=== PATIENT | male | born 1990 | race Caucasian/White ===

== ENCOUNTER 2017-12-14 19:39 | Emergency (ER) | payer BC, MEDICAID, OTHER ==
[2017-12-14] MEDS ORDERED: PROPARACAINE 0.5% OPHTH DROPS 15 ML EACHEYE STA (19:40)
[2017-12-14] MEDS ORDERED: ERYTHROMYCIN OPHTH OINT 1 GM TUBE RIGHTEYE STA (20:16)
--- NOTE | 2017-12-14 20:16 | ED Physician Documentation ---
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 He does not have any eye problems per se.) Review of Systems Constitutional: denies: Fever, Chills Nose: denies: Rhinorrhea / runny nose, Congestion Throat: denies: Sore throat PD PAST MEDICAL HISTORY - Past Medical History Past Medical History: No - Past Surgical History Past Surgical History: No - Present Medications Home Medications: Ambulatory Orders Medication Instructions Recorded Confirmed No Known Home Medications [No 12/14/17 12/14/17 Known Home Medications] - Allergies Allergies/Adverse Reactions: Allergies Allergy/AdvReac Type Severity Reaction Status Date / Time No Known Drug Allergies Allergy Verified 12/14/17 19:43 - Social History Does the pt smoke?: Yes Smoking Status: Current every day smoker Does the pt drink ETOH?: Yes Does the pt have substance abuse?: No Substance Use and Type: Marijuana - Immunizations Immunizations are current?: No PD ED PE NORMAL - Vitals Vital signs reviewed: Yes - General General: Alert and oriented X 3, No acute distress - HEENT HEENT: PERRL, EOMI, Other (He has a lot of pain until the administration of proparacaine after which she is pain-free. On fluorescein examination there is a large medial corneal abrasion with negative Gustabo sign.) - Neck Neck: Supple, no meningeal sign, No bony TTP - Neuro Neuro: Alert and oriented X 3, Normal speech Results - Vitals Vitals: Vital Signs - 24 hr 12/14/17 19:40 Temperature 36.5 C Heart Rate 79 Respiratory 16 Rate Blood Pressure 134/74 H O2 Saturation 100 Oxygen O2 Source Room air Departure - Departure Disposition: 01 Home, Self Care Clinical Impression: Corneal abrasion, right Qualifiers: Encounter type: initial encounter Qualified Code(s): S05.01XA - Injury of conjunctiva and corneal abrasion without foreign body, right eye, initial encounter Condition: Good Record reviewed to determine appropriate education?: Yes Instructions: ED Eye Injury Corneal Abrasion Follow-Up: Khris Wheat MD [Provider Admit Priv/Credential] - Within 3 Days Comments: You can use the topical proparacaine drops which I mostly emptied every 2 hours for no more than a day for pain control. Use the erythromycin ointment which you were given here 5 times a day for a week. Your blood pressure was elevated today on check into the emergency department. This does not mean that you have hypertension, it is a common phenomenon to come to the emergency department and have elevated blood pressure. I recommend that you see your primary care physician within the week to have it rechecked when you are feeling better.
[2017-12-14 20:29] VITALS: BP 139/77
== END 2017-12-14 20:28 | disposition home or self-care (01) ==
LOC: ED 19:39
DX: S05.01XA Injury of conjunctiva and corneal abrasion without foreign body, right eye, initial encounter (principal); W22.8XXA Striking against or struck by other objects, initial encounter; Y99.0 Civilian activity done for income or pay; R03.0 Elevated blood-pressure reading, without diagnosis of hypertension; F17.200 Nicotine dependence, unspecified, uncomplicated
CPT/HCPCS: 1040M; 99283; J3490

== ENCOUNTER 2019-06-21 09:00 | Outpatient (CLI) | payer BC, MEDICAID | END 2019-06-21 23:59 | disposition home or self-care (01) | LOC: LAB.WCP 09:00 | PROVIDERS: ATTEND Family Medicine | DX: M25.551 Pain in right hip (principal); R10.2 Pelvic and perineal pain | CPT/HCPCS: 36415; 85651; 86140 ==

== ENCOUNTER 2019-06-21 09:44 | Outpatient (CLI) | payer BC, MEDICAID ==
--- NOTE | 2019-06-22 08:11 | XRAY Report ---
Reason: BILATERAL HIP AND PELVIC PAIN Procedure Date: 06/21/2019 Accession Number: [id number] / [id number] Procedure: WCP - Hip BILAT CPT Code: Final Report FULL RESULT: EXAM: PELVIS FOR BILATERAL HIP RADIOGRAPHY, 3 VIEWS EXAM DATE: 06/21/2019 09:44 AM. CLINICAL HISTORY: Bilateral hip and pelvic pain since September 2018, in a 28-year-old male. COMPARISON: None. TECHNIQUE: AP view of the pelvis and both hips and oblique lateral views each hip. FINDINGS: Bones: Normal. No fractures or bone lesion. Right Hip: Normal. No dislocation. The hip joint space is preserved. Left Hip: Normal. No dislocation. The hip joint space is preserved. SI Joints: Moderate osteoarthritic changes both SI joints. Soft Tissues: Normal. No soft tissue swelling. Other: Calcifications noted in the lower aspect of the urinary bladder region, likely in the patient's prostate. IMPRESSION: Moderate osteoarthritic changes both sacroiliac joints. Otherwise normal examination. Hip joints normal bilaterally. Incidental Finding: Calcifications in the distal pelvic region, likely within the patient's prostate, approximately 15 mm in maximum diameter. RADIA
== END 2019-06-21 23:59 | disposition home or self-care (01) ==
LOC: DI.WCP 09:44
PROVIDERS: ATTEND Family Medicine
DX: M25.551 Pain in right hip (principal); R10.2 Pelvic and perineal pain; M47.818 Spondylosis without myelopathy or radiculopathy, sacral and sacrococcygeal region
CPT/HCPCS: 36415; 73521; 85651; 86140

== ENCOUNTER 2019-06-29 08:00 | Outpatient (CLI) | payer BC | END 2019-06-29 23:59 | disposition home or self-care (01) | LOC: LAB.WCP 08:00 | PROVIDERS: ATTEND Family Medicine | DX: M25.551 Pain in right hip (principal); R10.2 Pelvic and perineal pain | CPT/HCPCS: 36415; 81599 ==

== ENCOUNTER 2020-07-14 10:08 | Outpatient (CLI) | payer BC | END 2020-07-14 10:09 | disposition home or self-care (01) | LOC: COV 10:08 | PROVIDERS: ATTEND Family Medicine | DX: Z20.828 Contact with and (suspected) exposure to other viral communicable diseases (principal) ==

== ENCOUNTER 2022-11-12 16:07 | Outpatient (CLI) | payer BC | END 2022-11-12 23:59 | disposition critical access hospital (66) | LOC: EMS 16:07 | DX: R56.9 Unspecified convulsions (principal) | CPT/HCPCS: A0425; A0429 ==

== ENCOUNTER 2022-11-12 16:28 | Emergency (ER) | payer BC ==
[2022-11-12 16:48] LABS: BASOPHILS # (AUTO) 0.1 10^3/uL (0.0-0.1); BASOPHILS % (AUTO) 0.7 %; EOSINOPHILS # (AUTO) 0.2 10^3/uL (0.0-0.7); EOSINOPHILS % (AUTO) 1.2 %; HCT - HEMATOCRIT 43.4 % (42.0-52.0); HGB - HEMOGLOBIN 14.6 g/dL (14.0-18.0); LYMPHOCYTES # (AUTO) 1.8 10^3/uL (1.5-3.5); LYMPHOCYTES % (AUTO) 14.6 %; MEAN CORPUSCULAR HEMOGLOBIN 33.3 pg (27.0-31.0); MEAN CORPUSCULAR HGB CONC 33.6 g/dL (32.0-36.0); MEAN CORPUSCULAR VOLUME 99.1 fL (80.0-94.0); MEAN PLATELET VOLUME 9.2 fL (7.4-11.4); MONOCYTES # (AUTO) 0.9 10^3/uL (0.0-1.0); NEUTROPHILS # (AUTO) 9.4 10^3/uL (1.5-6.6); NEUTROPHILS % (AUTO) 76.1 %; PLT - PLATELET COUNT 273 10^3/uL (130-450); RED BLOOD COUNT 4.38 10^6/uL (4.70-6.10); RED CELL DISTRIBUTION WIDTH 12.3 % (12.0-15.0); WHITE BLOOD COUNT 12.3 x10^3/uL (4.8-10.8)
[2022-11-12 17:01] LABS: MUDS CUTOFF CONCENTRATIONS CUTOFF CONC BELOW:
[2022-11-12 17:01] LABS: ALBUMIN 4.4 g/dL (3.2-5.5); ALBUMIN/GLOBULIN RATIO 1.5 (1.0-2.2); BILIRUBIN,TOTAL 0.5 mg/dL (0.2-1.0); CALCIUM 9.2 mg/dL (8.5-10.3); POTASSIUM 3.9 mmol/L (3.5-5.0); TOTAL PROTEIN 7.3 g/dL (6.7-8.2)
[2022-11-12 17:08] LABS: BILIRUBIN,URINE NEGATIVE (NEGATIVE); GLUCOSE, URINE (UA) NEGATIVE (NEGATIVE); KETONES,URINE (UA) NEGATIVE (NEGATIVE); LEUKOCYTE ESTERASE, URINE TRACE (NEGATIVE); NITRITE,URINE NEGATIVE (NEGATIVE); OCCULT BLOOD,URINE TRACE-INTA (NEGATIVE); PROTEIN,URINE TRACE mg/dL (NEGATIVE); UROBILINOGEN,URINE 0.2 (NORMAL) E.U./dL (NORMAL)
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
[2022-11-12 17:20] LABS: CLARITY,URINE HAZY (CLEAR)
[2022-11-12 17:21] LABS: AMPHETAMINE SCREEN,URINE NEGATIVE (NEGATIVE); BARBITURATE SCREEN,UR NEGATIVE (NEGATIVE); BENZODIAZEPINES SCREEN, URINE NEGATIVE (NEGATIVE); COCAINE SCREEN URINE NEGATIVE (NEGATIVE); METHADONE SCREEN, URINE NEGATIVE (NEGATIVE); METHAMPHETAMINES SCREEN, URINE NEGATIVE (NEGATIVE); OPIATE SCREEN, URINE NEGATIVE (NEGATIVE); OXYCODONE SCREEN, URINE NEGATIVE (NEGATIVE); PROPOXYPHENE SCREEN, URINE NEGATIVE (NEGATIVE); THC CANNABINOID SCREEN, URINE POSITIVE (NEGATIVE); TRICYCLIC ANTIDEPRESSANT,URINE NEGATIVE (NEGATIVE)
[2022-11-12 17:27] LABS: BACTERIA,URINE None Seen /HPF (None Seen); RBC,URINE 0-5 /HPF (0-5); SQUAMOUS EPITHELIAL CELL,UR FEW Squamous (<= Few); WBC,URINE 0-3 /HPF (0-3)
--- NOTE | 2022-11-12 18:04 | CT Report ---
PROCEDURE: HEAD WO INDICATIONS: New onset seizure TECHNIQUE: Noncontrast 4.5 mm thick angled axial sections acquired from the foramen magnum to the vertex. For r adiation dose reduction, the following was used: automated exposure control, adjustment of mA and/or kV according to patient size. COMPARISON: None. FINDINGS: Image quality: Excellent. CSF spaces: Basal cisterns are patent. No extra-axial fluid collections. Ventricles are normal in size and shape. Brain: No midline shift. No intracranial masses or hemorrhage. River-white matter interface is norm al. Skull and face: Calvarium and visualized facial bones are intact, without suspicious lesions. Sinuses: Visualized sinuses and mastoids are clear. IMPRESSION: No acute intracranial abnormalities. Reviewed by: Meagan Turk MD on 11/12/2022 6:02 PM PDT Approved by: Meagan Turk MD on 11/12/2022 6:02 PM PDT Station ID: [id number]
[2022-11-12 18:34] VITALS: BP 152/90
== END 2022-11-12 19:07 | disposition home or self-care (01) ==
LOC: EDUNIT# → ED 16:28
DX: R56.9 Unspecified convulsions (principal); F17.200 Nicotine dependence, unspecified, uncomplicated
CPT/HCPCS: 36415; 80053; 80306; 81001; 81003; 83690; 85025; 87086; 99284

== ENCOUNTER 2022-12-06 07:04 | Outpatient (CLI) | payer BC ==
[2022-12-06] MEDS ORDERED: GADOBUTROL 10 MMOL/10 ML VIAL ONE (07:16)
--- NOTE | 2022-12-06 09:02 | MRI Report ---
PROCEDURE: BRAIN W/WO INDICATIONS: SEIZURE DISORDER CONTRAST: gadavist 8.6ml TECHNIQUE: Noncontrast axial T1 spin echo, axial T2 fast spin echo, sagittal and axial FLAIR, coronal T2 fast sp in echo, axial gradient echo, axial diffusion and ADC through the brain. After the administration of contrast, axial and coronal T1 spin echo with fat saturation through the brain. COMPARISON: CT Head 11/12/22 FINDINGS: Image quality: Excellent. CSF spaces: Basal cisterns are patent. No extra-axial fluid collections. Ventricles are normal in size and shape. Brain: No midline shift. No intracranial bleeds or masses. No abnormal intracranial enhancement. There is cerebral volume loss for age. There is periventricular white matter chronic small vessel is chemic change. The brainstem appears normal. Diffusion-weighted images demonstrate no acute ischemi c insults. No chronic ischemic insults. Normal intravascular flow voids are present. Hipppocampi a re symmetrical. No abnormal signal, mass or enhancement. Skull and face: Calvarial marrow is normal in signal. Orbits appear normal. Sinuses: Sinuses and mastoids appear clear. IMPRESSION: No acute intracranial process. Reviewed by: Lindsey Damon MD on 12/06/2022 9:01 AM PDT Approved by: Lindsey Damon MD on 12/06/2022 9:01 AM PDT Station ID: [id number]
[2022-12-06] MEDS ORDERED: GADOBUTROL 10 MMOL/10 ML VIAL IVP ONE (19:05)
== END 2022-12-06 07:05 | disposition home or self-care (01) ==
LOC: DI 07:04
PROVIDERS: ATTEND Family Medicine
DX: G40.909 Epilepsy, unspecified, not intractable, without status epilepticus (principal)
CPT/HCPCS: 70553; A9585

== ENCOUNTER 2023-01-06 17:45 | Outpatient (CLI) | payer BC | END 2023-01-06 17:46 | disposition critical access hospital (66) | LOC: EMS 17:45 | DX: R56.9 Unspecified convulsions (principal); R51.9 Headache, unspecified; W07.XXXA Fall from chair, initial encounter; Y92.89 Other specified places as the place of occurrence of the external cause | CPT/HCPCS: A0425; A0429 ==

== ENCOUNTER 2023-01-06 18:08 | Emergency (ER) | payer BC ==
--- NOTE | 2023-01-06 18:21 | ED Physician Documentation ---
History of Present Illness - Stated complaint Stated Complaint: SZ - Chief complaint Chief Complaint: Neuro - Additonal information Additional information: 32-year-old male with a history of a known seizure disorder Is brought to the emergency department after a witnessed seizure. Reportedly was sitting at a bar about to order a beer when he suddenly leaned to his left, fell off the barstool and had a 32 1 minute generalized tonic-clonic seizure. EMS arrived and he was mildly postictal but had no focal deficits. His blood glucose was 120. Presentation the emergency department he is alert and well-appearing. He reports that his last seizure was November 12. He reports compliance with his seizure medication but cannot remember the name of it. With the exception of occasional alcohol he denies any drug use. He is followed by neurology. Review of Systems Constitutional: denies: Fever, Chills GI: reports: Reviewed and negative : reports: Reviewed and negative Neurologic: reports: Seizure PD PAST MEDICAL HISTORY - Past Medical History Cardiovascular: None Respiratory: None Neuro: None Endocrine/Autoimmune: None GI: None : None HEENT: None Psych: None Musculoskeletal: None Derm: None - Past Surgical History Past Surgical History: No - Present Medications Home Medications: Ambulatory Orders Medication Instructions Recorded Confirmed No Known Home Medications 12/14/17 11/12/22 - Allergies Allergies/Adverse Reactions: Allergies Allergy/AdvReac Type Severity Reaction Status Date / Time No Known Drug Allergies Allergy Verified 01/06/23 18:15 - Social History Does the pt smoke?: Yes Smoking Status: Current every day smoker Does the pt drink ETOH?: Yes Does the pt have substance abuse?: No - Immunizations Immunizations are current?: No PD ED PE NORMAL - General General: Alert and oriented X 3, No acute distress - HEENT HEENT: PERRL - Neck Neck: Supple, no meningeal sign, No adenopathy - Cardiac Cardiac: RRR, No murmur - Respiratory Respiratory: No respiratory distress, Clear bilaterally - Abdomen Abdomen: Normal bowel sounds, Soft, Non tender - Extremities Extremities: No deformity - Neuro Neuro: Alert and oriented X 3, furniture finisher 2-12 intact Eye Opening: Spontaneous Motor: Obeys Commands Verbal: Oriented GCS Score: 15 Results - Vitals Vitals: Vital Signs - 24 hr 01/06/23 18:13 Temperature 36.9 C Heart Rate 115 H Respiratory 16 Rate Blood Pressure 170/105 H O2 Saturation 97 Oxygen O2 Source Room air - Labs Labs: Laboratory Tests 01/06/23 01/06/23 01/06/23 18:25 18:25 18:32 WBC 12.6 H RBC 4.27 L Hgb 14.5 Hct 42.1 MCV 98.6 H MCH 34.0 H MCHC 34.4 RDW 13.2 Plt Count 245 MPV 9.2 Neut # (Auto) 9.0 H Lymph # (Auto) 2.1 Power # (Auto) 1.1 H Eos # (Auto) 0.2 Baso # (Auto) 0.1 Absolute Nucleated RBC 0.00 Nucleated RBC % 0.0 Sodium 135 Potassium 3.6 Chloride 100 L Carbon Dioxide 26 Anion Gap 9.0 BUN 17 Creatinine 0.9 Estimated GFR (MDRD) 98 Glucose 107 H Calcium 9.1 Total Bilirubin 0.5 AST 46 H ALT 45 Alkaline Phosphatase 84 Total Protein 7.5 Albumin 4.2 Globulin 3.3 Albumin/Globulin Ratio 1.3 Lipase 32 Urine Opiates Screen NEGATIVE Ur Oxycodone Screen NEGATIVE Urine Methadone Screen NEGATIVE Ur Propoxyphene Screen NEGATIVE Ur Barbiturates Screen NEGATIVE Ur Tricyclics Screen NEGATIVE Ur Phencyclidine Scrn NEGATIVE Ur Amphetamine Screen NEGATIVE U Methamphetamines Scrn NEGATIVE U Benzodiazepines Scrn NEGATIVE Urine Cocaine Screen NEGATIVE U Cannabinoids Screen POSITIVE H Ethyl Alcohol < 5.0 PD Medical Decision Making - ED course Complexity details: reviewed results, d/w patient ED course: 32-year-old male who has a known seizure disorder presents emergency department after witnessed seizure when sitting down to the bar. He had not yet drank any alcohol. He does report to this provider that he has not drank much today and thinks he is dehydrated. His last seizure was about 2 months ago but he started a new seizure medicine about 3 days ago. He is followed by [facility] neurology. On presentation to the emergency department he is alert and well-appearing. He does not appear postictal. He has no focal neurodeficits. He did present mildly tachycardic and with hypertension. I did obtain CBC electrolytes and urine drug screen as well as alcohol. Urine drug screen was positive for cannabis only. No alcohol was detected. His CBC and electrolytes were without any worrisome acute abnormality per my interpretation. I am at this time patient is requesting be discharged home. We did discuss the usual emergent return precautions for worsening symptoms. He will contact his neurologist tomorrow to discuss this ED visit. Departure - Departure Disposition: 01 Home, Self Care Clinical Impression: Seizure, History of seizure disorder Condition: Stable Record reviewed to determine appropriate education?: Yes Comments: Godfrey you had a seizure today. It sounds as though you have only been taking your seizure medication for about 3 days. Is important you discuss this ED visit with your neurologist to determine if they want to make any adjustments or changes to your medications. Is important you continue to refrain from driving until cleared by your neurologist. Return to the ER for any new or worsening symptoms
[2023-01-06 18:37] LABS: BASOPHILS # (AUTO) 0.1 10^3/uL (0.0-0.1); BASOPHILS % (AUTO) 0.8 %; EOSINOPHILS # (AUTO) 0.2 10^3/uL (0.0-0.7); EOSINOPHILS % (AUTO) 1.7 %; HCT - HEMATOCRIT 42.1 % (42.0-52.0); HGB - HEMOGLOBIN 14.5 g/dL (14.0-18.0); LYMPHOCYTES # (AUTO) 2.1 10^3/uL (1.5-3.5); LYMPHOCYTES % (AUTO) 16.7 %; MEAN CORPUSCULAR HGB CONC 34.4 g/dL (32.0-36.0); MEAN CORPUSCULAR VOLUME 98.6 fL (80.0-94.0); MEAN PLATELET VOLUME 9.2 fL (7.4-11.4); MONOCYTES # (AUTO) 1.1 10^3/uL (0.0-1.0); MONOCYTES % (AUTO) 8.8 %; NEUTROPHILS % (AUTO) 71.5 %; PLT - PLATELET COUNT 245 10^3/uL (130-450); RED BLOOD COUNT 4.27 10^6/uL (4.70-6.10); RED CELL DISTRIBUTION WIDTH 13.2 % (12.0-15.0); WHITE BLOOD COUNT 12.6 x10^3/uL (4.8-10.8)
[2023-01-06 18:38] LABS: MUDS CUTOFF CONCENTRATIONS CUTOFF CONC BELOW:
[2023-01-06 18:49] LABS: ALBUMIN 4.2 g/dL (3.2-5.5); ALBUMIN/GLOBULIN RATIO 1.3 (1.0-2.2); ALKALINE PHOSPHATASE 84 IU/L (42-121); ALT ALANINE AMINOTRANSFERASE 45 IU/L (10-60); AST ASPARTATE AMINOTRANSFERASE 46 IU/L (10-42); BILIRUBIN,TOTAL 0.5 mg/dL (0.2-1.0); BUN - BLOOD UREA NITROGEN 17 mg/dL (6-20); CALCIUM 9.1 mg/dL (8.5-10.3); CARBON DIOXIDE - CO2 26 mmol/L (21-32); CHLORIDE 100 mmol/L (101-111); CREATININE 0.9 mg/dL (0.6-1.2); ETOH - ETHANOL < 5.0 mg/dL; GFR - MDRD 98 (>89); GLUCOSE 107 mg/dL (70-100); LIPASE 32 U/L (22-51); POTASSIUM 3.6 mmol/L (3.5-5.0); SODIUM 135 mmol/L (135-145); TOTAL PROTEIN 7.5 g/dL (6.7-8.2)
[2023-01-06 18:50] LABS: AMPHETAMINE SCREEN,URINE NEGATIVE (NEGATIVE); BARBITURATE SCREEN,UR NEGATIVE (NEGATIVE); BENZODIAZEPINES SCREEN, URINE NEGATIVE (NEGATIVE); COCAINE SCREEN URINE NEGATIVE (NEGATIVE); METHADONE SCREEN, URINE NEGATIVE (NEGATIVE); METHAMPHETAMINES SCREEN, URINE NEGATIVE (NEGATIVE); OPIATE SCREEN, URINE NEGATIVE (NEGATIVE); OXYCODONE SCREEN, URINE NEGATIVE (NEGATIVE); PROPOXYPHENE SCREEN, URINE NEGATIVE (NEGATIVE); THC CANNABINOID SCREEN, URINE POSITIVE (NEGATIVE); TRICYCLIC ANTIDEPRESSANT,URINE NEGATIVE (NEGATIVE)
--- OUTSIDE RECORDS SUMMARY | 2023-01-06 19:00 | EXTERNAL MEDICAL SUMMARY RPT | Continuity of Care Document ---
Author Name Unknown Address [address] [place] [address] Phone Organization [facility] Address [address] [place] [id number] Phone Care Team Providers Care Re Examiner Name Role Phone Unavailable Unavailable Unavailable Results/Labs test date author facility value unit interpretation Result panel 1 (unknown) (no date) (unknown) All (no value) (units unknown) (unknown) Result panel 2 (unknown) (no date) (unknown) All (no value) (units unknown) (unknown) Result panel 3 (unknown) (no date) (unknown) All (no value) (units unknown) (unknown) Result panel 4 (unknown) (no date) (unknown) All (no value) (units unknown) (unknown) Result panel 5 (unknown) (no date) (unknown) All (no value) (units unknown) (unknown) Result panel 6 (unknown) (no date) (unknown) All (no value) (units unknown) (unknown) Result panel 7 (unknown) (no date) (unknown) All (no value) (units unknown) (unknown) Result panel 8 (unknown) (no date) (unknown) All (no value) (units unknown) (unknown) Result panel 9 (unknown) (no date) (unknown) All (no value) (units unknown) (unknown) Result panel 10 (unknown) (no date) (unknown) All (no value) (units unknown) (unknown) Result panel 11 (unknown) (no date) (unknown) All (no value) (units unknown) (unknown) Result panel 12 (unknown) (no date) (unknown) All (no value) (units unknown) (unknown) Result panel 13 (unknown) (no date) (unknown) All (no value) (units unknown) (unknown) Result panel 14 (unknown) (no date) (unknown) All (no value) (units unknown) (unknown) Result panel 15 (unknown) (no date) (unknown) All (no value) (units unknown) (unknown) Result panel 16 (unknown) (no date) (unknown) All (no value) (units unknown) (unknown) Result panel 17 (unknown) (no date) (unknown) All (no value) (units unknown) (unknown) Result panel 18 (unknown) (no date) (unknown) All (no value) (units unknown) (unknown) Result panel 19 (unknown) (no date) (unknown) All (no value) (units unknown) (unknown) Result panel 20 (unknown) (no date) (unknown) All (no value) (units unknown) (unknown) Result panel 21 (unknown) (no date) (unknown) All (no value) (units unknown) (unknown) Result panel 22 (unknown) (no date) (unknown) All (no value) (units unknown) (unknown) Result panel 23 (unknown) (no date) (unknown) All (no value) (units unknown) (unknown) Result panel 24 (unknown) (no date) (unknown) All (no value) (units unknown) (unknown) Result panel 25 (unknown) (no date) (unknown) All (no value) (units unknown) (unknown) Result panel 26 (unknown) (no date) (unknown) All (no value) (units unknown) (unknown) Result panel 27 (unknown) (no date) (unknown) All (no value) (units unknown) (unknown) Result panel 28 (unknown) (no date) (unknown) All (no value) (units unknown) (unknown) Result panel 29 (unknown) (no date) (unknown) All (no value) (units unknown) (unknown) Result panel 30 (unknown) (no date) (unknown) All (no value) (units unknown) (unknown) Result panel 31 (unknown) (no date) (unknown) All (no value) (units unknown) (unknown) Result panel 32 (unknown) (no date) (unknown) All (no value) (units unknown) (unknown) Result panel 33 (unknown) (no date) (unknown) All (no value) (units unknown) (unknown) Result panel 34 (unknown) (no date) (unknown) All (no value) (units unknown) (unknown) Result panel 35 (unknown) (no date) (unknown) All (no value) (units unknown) (unknown) Result panel 36 (unknown) (no date) (unknown) All (no value) (units unknown) (unknown) Result panel 37 (unknown) (no date) (unknown) All (no value) (units unknown) (unknown) Result panel 38 (unknown) (no date) (unknown) All (no value) (units unknown) (unknown) Result panel 39 (unknown) (no date) (unknown) All (no value) (units unknown) (unknown) Result panel 40 (unknown) (no date) (unknown) All (no value) (units unknown) (unknown) Result panel 41 (unknown) (no date) (unknown) All (no value) (units unknown) (unknown) Result panel 42 (unknown) (no date) (unknown) All (no value) (units unknown) (unknown) Result panel 43 (unknown) (no date) (unknown) All (no value) (units unknown) (unknown) Result panel 44 (unknown) (no date) (unknown) All (no value) (units unknown) (unknown) Result panel 45 (unknown) (no date) (unknown) All (no value) (units unknown) (unknown) Result panel 46 (unknown) (no date) (unknown) All (no value) (units unknown) (unknown) Result panel 47 (unknown) (no date) (unknown) All (no value) (units unknown) (unknown) Result panel 48 (unknown) (no date) (unknown) All (no value) (units unknown) (unknown) Result panel 49 (unknown) (no date) (unknown) All (no value) (units unknown) (unknown) Result panel 50 (unknown) (no date) (unknown) All (no value) (units unknown) (unknown) Result panel 51 (unknown) (no date) (unknown) All (no value) (units unknown) (unknown) Result panel 52 (unknown) (no date) (unknown) All (no value) (units unknown) (unknown) Result panel 53 (unknown) (no date) (unknown) All (no value) (units unknown) (unknown) Result panel 54 (unknown) (no date) (unknown) All (no value) (units unknown) (unknown) Result panel 55 (unknown) (no date) (unknown) All (no value) (units unknown) (unknown) Result panel 56 (unknown) (no date) (unknown) All (no value) (units unknown) (unknown) Result panel 57 (unknown) (no date) (unknown) All (no value) (units unknown) (unknown) Result panel 58 (unknown) (no date) (unknown) All (no value) (units unknown) (unknown) Result panel 59 (unknown) (no date) (unknown) All (no value) (units unknown) (unknown) Result panel 60 (unknown) (no date) (unknown) All (no value) (units unknown) (unknown) Result panel 61 (unknown) (no date) (unknown) All (no value) (units unknown) (unknown) Result panel 62 (unknown) (no date) (unknown) All (no value) (units unknown) (unknown) Result panel 63 (unknown) (no date) (unknown) All (no value) (units unknown) (unknown) Result panel 64 (unknown) (no date) (unknown) All (no value) (units unknown) (unknown) Result panel 65 (unknown) (no date) (unknown) All (no value) (units unknown) (unknown) Result panel 66 (unknown) (no date) (unknown) All (no value) (units unknown) (unknown) Result panel 67 (unknown) (no date) (unknown) All (no value) (units unknown) (unknown) Result panel 68 (unknown) (no date) (unknown) All (no value) (units unknown) (unknown) Result panel 69 (unknown) (no date) (unknown) All (no value) (units unknown) (unknown) Result panel 70 (unknown) (no date) (unknown) All (no value) (units unknown) (unknown) Result panel 71 (unknown) (no date) (unknown) All (no value) (units unknown) (unknown) Result panel 72 (unknown) (no date) (unknown) All (no value) (units unknown) (unknown) Result panel 73 (unknown) (no date) (unknown) All (no value) (units unknown) (unknown) Result panel 74 (unknown) (no date) (unknown) All (no value) (units unknown) (unknown) Result panel 75 (unknown) (no date) (unknown) All (no value) (units unknown) (unknown) Result panel 76 (unknown) (no date) (unknown) All (no value) (units unknown) (unknown) Result panel 77 (unknown) (no date) (unknown) All (no value) (units unknown) (unknown) Result panel 78 (unknown) (no date) (unknown) All (no value) (units unknown) (unknown) Result panel 79 (unknown) (no date) (unknown) All (no value) (units unknown) (unknown) Result panel 80 (unknown) (no date) (unknown) All (no value) (units unknown) (unknown) Result panel 81 (unknown) (no date) (unknown) All (no value) (units unknown) (unknown) Result panel 82 (unknown) (no date) (unknown) All (no value) (units unknown) (unknown) Result panel 83 (unknown) (no date) (unknown) All (no value) (units unknown) (unknown) Result panel 84 (unknown) (no date) (unknown) All (no value) (units unknown) (unknown) Result panel 85 (unknown) (no date) (unknown) All (no value) (units unknown) (unknown) Result panel 86 (unknown) (no date) (unknown) All (no value) (units unknown) (unknown) Result panel 87 (unknown) (no date) (unknown) All (no value) (units unknown) (unknown) Result panel 88 (unknown) (no date) (unknown) All (no value) (units unknown) (unknown) Result panel 89 (unknown) (no date) (unknown) All (no value) (units unknown) (unknown) Result panel 90 (unknown) (no date) (unknown) All (no value) (units unknown) (unknown) Result panel 91 (unknown) (no date) (unknown) All (no value) (units unknown) (unknown) Result panel 92 (unknown) (no date) (unknown) All (no value) (units unknown) (unknown) Result panel 93 (unknown) (no date) (unknown) All (no value) (units unknown) (unknown) Result panel 94 (unknown) (no date) (unknown) All (no value) (units unknown) (unknown) Result panel 95 (unknown) (no date) (unknown) All (no value) (units unknown) (unknown) Result panel 96 (unknown) (no date) (unknown) All (no value) (units unknown) (unknown) Result panel 97 (unknown) (no date) (unknown) All (no value) (units unknown) (unknown) Result panel 98 (unknown) (no date) (unknown) All (no value) (units unknown) (unknown) Result panel 99 (unknown) (no date) (unknown) All (no value) (units unknown) (unknown) Result panel 100 (unknown) (no date) (unknown) All (no value) (units unknown) (unknown) Result panel 101 (unknown) (no date) (unknown) All (no value) (units unknown) (unknown) Result panel 102 (unknown) (no date) (unknown) All (no value) (units unknown) (unknown) Result panel 103 (unknown) (no date) (unknown) All (no value) (units unknown) (unknown) Result panel 104 (unknown) (no date) (unknown) All (no value) (units unknown) (unknown) Result panel 105 (unknown) (no date) (unknown) All (no value) (units unknown) (unknown) Result panel 106 (unknown) (no date) (unknown) All (no value) (units unknown) (unknown) Result panel 107 (unknown) (no date) (unknown) All (no value) (units unknown) (unknown) Result panel 108 (unknown) (no date) (unknown) All (no value) (units unknown) (unknown) Result panel 109 (unknown) (no date) (unknown) All (no value) (units unknown) (unknown) Result panel 110 (unknown) (no date) (unknown) All (no value) (units unknown) (unknown) Result panel 111 (unknown) (no date) (unknown) All (no value) (units unknown) (unknown) Result panel 112 (unknown) (no date) (unknown) All (no value) (units unknown) (unknown) Result panel 113 (unknown) (no date) (unknown) All (no value) (units unknown) (unknown) Result panel 114 (unknown) (no date) (unknown) All (no value) (units unknown) (unknown) Result panel 115 (unknown) (no date) (unknown) All (no value) (units unknown) (unknown) Result panel 116 (unknown) (no date) (unknown) All (no value) (units unknown) (unknown) Result panel 117 (unknown) (no date) (unknown) All (no value) (units unknown) (unknown) Result panel 118 (unknown) (no date) (unknown) All (no value) (units unknown) (unknown) Result panel 119 (unknown) (no date) (unknown) All (no value) (units unknown) (unknown) Result panel 120 (unknown) (no date) (unknown) All (no value) (units unknown) (unknown) Result panel 121 (unknown) (no date) (unknown) All (no value) (units unknown) (unknown) Result panel 122 (unknown) (no date) (unknown) All (no value) (units unknown) (unknown) Result panel 123 (unknown) (no date) (unknown) All (no value) (units unknown) (unknown) Result panel 124 (unknown) (no date) (unknown) All (no value) (units unknown) (unknown) Result panel 125 (unknown) (no date) (unknown) All (no value) (units unknown) (unknown) Result panel 126 (unknown) (no date) (unknown) All (no value) (units unknown) (unknown) Result panel 127 (unknown) (no date) (unknown) All (no value) (units unknown) (unknown) Result panel 128 (unknown) (no date) (unknown) All (no value) (units unknown) (unknown) Result panel 129 (unknown) (no date) (unknown) All (no value) (units unknown) (unknown) Result panel 130 (unknown) (no date) (unknown) All (no value) (units unknown) (unknown) Result panel 131 (unknown) (no date) (unknown) All (no value) (units unknown) (unknown) Result panel 132 (unknown) (no date) (unknown) All (no value) (units unknown) (unknown) Result panel 133 (unknown) (no date) (unknown) All (no value) (units unknown) (unknown) Result panel 134 (unknown) (no date) (unknown) All (no value) (units unknown) (unknown) Result panel 135 (unknown) (no date) (unknown) All (no value) (units unknown) (unknown) Result panel 136 (unknown) (no date) (unknown) All (no value) (units unknown) (unknown) Result panel 137 (unknown) (no date) (unknown) All (no value) (units unknown) (unknown) Result panel 138 (unknown) (no date) (unknown) All (no value) (units unknown) (unknown) Result panel 139 (unknown) (no date) (unknown) All (no value) (units unknown) (unknown) Result panel 140 (unknown) (no date) (unknown) All (no value) (units unknown) (unknown) Result panel 141 (unknown) (no date) (unknown) All (no value) (units unknown) (unknown) Result panel 142 (unknown) (no date) (unknown) All (no value) (units unknown) (unknown) Result panel 143 (unknown) (no date) (unknown) All (no value) (units unknown) (unknown) Result panel 144 (unknown) (no date) (unknown) All (no value) (units unknown) (unknown) Result panel 145 (unknown) (no date) (unknown) All (no value) (units unknown) (unknown) Result panel 146 (unknown) (no date) (unknown) All (no value) (units unknown) (unknown) Result panel 147 (unknown) (no date) (unknown) All (no value) (units unknown) (unknown) Result panel 148 (unknown) (no date) (unknown) All (no value) (units unknown) (unknown) Result panel 149 (unknown) (no date) (unknown) All (no value) (units unknown) (unknown) Result panel 150 (unknown) (no date) (unknown) All (no value) (units unknown) (unknown) Result panel 151 (unknown) (no date) (unknown) All (no value) (units unknown) (unknown) Result panel 152 (unknown) (no date) (unknown) All (no value) (units unknown) (unknown) Result panel 153 (unknown) (no date) (unknown) All (no value) (units unknown) (unknown) Result panel 154 (unknown) (no date) (unknown) All (no value) (units unknown) (unknown) Result panel 155 (unknown) (no date) (unknown) All (no value) (units unknown) (unknown) Result panel 156 (unknown) (no date) (unknown) All (no value) (units unknown) (unknown) Result panel 157 (unknown) (no date) (unknown) All (no value) (units unknown) (unknown) Result panel 158 (unknown) (no date) (unknown) All (no value) (units unknown) (unknown) Result panel 159 (unknown) (no date) (unknown) All (no value) (units unknown) (unknown) Result panel 160 (unknown) (no date) (unknown) All (no value) (units unknown) (unknown) Result panel 161 (unknown) (no date) (unknown) All (no value) (units unknown) (unknown) Result panel 162 (unknown) (no date) (unknown) All (no value) (units unknown) (unknown) Result panel 163 (unknown) (no date) (unknown) All (no value) (units unknown) (unknown) Result panel 164 (unknown) (no date) (unknown) All (no value) (units unknown) (unknown) Result panel 165 (unknown) (no date) (unknown) All (no value) (units unknown) (unknown) Result panel 166 (unknown) (no date) (unknown) All (no value) (units unknown) (unknown) Result panel 167 (unknown) (no date) (unknown) All (no value) (units unknown) (unknown) Result panel 168 (unknown) (no date) (unknown) All (no value) (units unknown) (unknown) Result panel 169 (unknown) (no date) (unknown) All (no value) (units unknown) (unknown) Result panel 170 (unknown) (no date) (unknown) All (no value) (units unknown) (unknown) Result panel 171 (unknown) (no date) (unknown) All (no value) (units unknown) (unknown) Result panel 172 (unknown) (no date) (unknown) All (no value) (units unknown) (unknown) Result panel 173 (unknown) (no date) (unknown) All (no value) (units unknown) (unknown) Result panel 174 (unknown) (no date) (unknown) All (no value) (units unknown) (unknown) Result panel 175 (unknown) (no date) (unknown) All (no value) (units unknown) (unknown) Result panel 176 (unknown) (no date) (unknown) All (no value) (units unknown) (unknown) Result panel 177 (unknown) (no date) (unknown) All (no value) (units unknown) (unknown) Result panel 178 (unknown) (no date) (unknown) All (no value) (units unknown) (unknown) Result panel 179 (unknown) (no date) (unknown) All (no value) (units unknown) (unknown) Result panel 180 (unknown) (no date) (unknown) All (no value) (units unknown) (unknown) Result panel 181 (unknown) (no date) (unknown) All (no value) (units unknown) (unknown) Result panel 182 (unknown) (no date) (unknown) All (no value) (units unknown) (unknown) Result panel 183 (unknown) (no date) (unknown) All (no value) (units unknown) (unknown) Result panel 184 (unknown) (no date) (unknown) All (no value) (units unknown) (unknown) Result panel 185 (unknown) (no date) (unknown) All (no value) (units unknown) (unknown) Result panel 186 (unknown) (no date) (unknown) All (no value) (units unknown) (unknown) Result panel 187 (unknown) (no date) (unknown) All (no value) (units unknown) (unknown) Result panel 188 (unknown) (no date) (unknown) All (no value) (units unknown) (unknown) Result panel 189 (unknown) (no date) (unknown) All (no value) (units unknown) (unknown) Result panel 190 (unknown) (no date) (unknown) All (no value) (units unknown) (unknown) Result panel 191 (unknown) (no date) (unknown) All (no value) (units unknown) (unknown) Result panel 192 (unknown) (no date) (unknown) All (no value) (units unknown) (unknown) Result panel 193 (unknown) (no date) (unknown) All (no value) (units unknown) (unknown) Result panel 194 (unknown) (no date) (unknown) All (no value) (units unknown) (unknown) Result panel 195 (unknown) (no date) (unknown) All (no value) (units unknown) (unknown) Result panel 196 (unknown) (no date) (unknown) All (no value) (units unknown) (unknown) Result panel 197 (unknown) (no date) (unknown) All (no value) (units unknown) (unknown) Result panel 198 (unknown) (no date) (unknown) All (no value) (units unknown) (unknown) Result panel 199 (unknown) (no date) (unknown) All (no value) (units unknown) (unknown) Result panel 200 (unknown) (no date) (unknown) All (no value) (units unknown) (unknown) Result panel 201 (unknown) (no date) (unknown) All (no value) (units unknown) (unknown) Result panel 202 (unknown) (no date) (unknown) All (no value) (units unknown) (unknown) Result panel 203 (unknown) (no date) (unknown) All (no value) (units unknown) (unknown) Result panel 204 (unknown) (no date) (unknown) All (no value) (units unknown) (unknown) Result panel 205 (unknown) (no date) (unknown) All (no value) (units unknown) (unknown) Result panel 206 (unknown) (no date) (unknown) All (no value) (units unknown) (unknown) Result panel 207 (unknown) (no date) (unknown) All (no value) (units unknown) (unknown) Result panel 208 (unknown) (no date) (unknown) All (no value) (units unknown) (unknown) Result panel 209 (unknown) (no date) (unknown) All (no value) (units unknown) (unknown) Result panel 210 (unknown) (no date) (unknown) All (no value) (units unknown) (unknown) Result panel 211 (unknown) (no date) (unknown) All (no value) (units unknown) (unknown) Result panel 212 (unknown) (no date) (unknown) All (no value) (units unknown) (unknown) Result panel 213 (unknown) (no date) (unknown) All (no value) (units unknown) (unknown) Result panel 214 (unknown) (no date) (unknown) All (no value) (units unknown) (unknown) Result panel 215 (unknown) (no date) (unknown) All (no value) (units unknown) (unknown) Result panel 216 (unknown) (no date) (unknown) All (no value) (units unknown) (unknown) Result panel 217 (unknown) (no date) (unknown) All (no value) (units unknown) (unknown) Result panel 218 (unknown) (no date) (unknown) All (no value) (units unknown) (unknown) Result panel 219 (unknown) (no date) (unknown) All (no value) (units unknown) (unknown) Result panel 220 (unknown) (no date) (unknown) All (no value) (units unknown) (unknown) Result panel 221 (unknown) (no date) (unknown) All (no value) (units unknown) (unknown) Result panel 222 (unknown) (no date) (unknown) All (no value) (units unknown) (unknown) Result panel 223 (unknown) (no date) (unknown) All (no value) (units unknown) (unknown) Result panel 224 (unknown) (no date) (unknown) All (no value) (units unknown) (unknown) Result panel 225 (unknown) (no date) (unknown) All (no value) (units unknown) (unknown) Result panel 226 (unknown) (no date) (unknown) All (no value) (units unknown) (unknown) Result panel 227 (unknown) (no date) (unknown) All (no value) (units unknown) (unknown) Result panel 228 (unknown) (no date) (unknown) All (no value) (units unknown) (unknown) Result panel 229 (unknown) (no date) (unknown) All (no value) (units unknown) (unknown) Result panel 230 (unknown) (no date) (unknown) All (no value) (units unknown) (unknown) Result panel 231 (unknown) (no date) (unknown) All (no value) (units unknown) (unknown) Result panel 232 (unknown) (no date) (unknown) All (no value) (units unknown) (unknown) Result panel 233 (unknown) (no date) (unknown) All (no value) (units unknown) (unknown) Result panel 234 (unknown) (no date) (unknown) All (no value) (units unknown) (unknown) Result panel 235 (unknown) (no date) (unknown) All (no value) (units unknown) (unknown) Result panel 236 (unknown) (no date) (unknown) All (no value) (units unknown) (unknown) Result panel 237 (unknown) (no date) (unknown) All (no value) (units unknown) (unknown) Result panel 238 (unknown) (no date) (unknown) All (no value) (units unknown) (unknown) Result panel 239 (unknown) (no date) (unknown) All (no value) (units unknown) (unknown) Result panel 240 (unknown) (no date) (unknown) All (no value) (units unknown) (unknown) Result panel 241 (unknown) (no date) (unknown) All (no value) (units unknown) (unknown) Result panel 242 (unknown) (no date) (unknown) All (no value) (units unknown) (unknown) Result panel 243 (unknown) (no date) (unknown) All (no value) (units unknown) (unknown) Result panel 244 (unknown) (no date) (unknown) All (no value) (units unknown) (unknown) Result panel 245 (unknown) (no date) (unknown) All (no value) (units unknown) (unknown) Result panel 246 (unknown) (no date) (unknown) All (no value) (units unknown) (unknown) Result panel 247 (unknown) (no date) (unknown) All (no value) (units unknown) (unknown) Result panel 248 (unknown) (no date) (unknown) All (no value) (units unknown) (unknown) Result panel 249 (unknown) (no date) (unknown) All (no value) (units unknown) (unknown) Result panel 250 (unknown) (no date) (unknown) All (no value) (units unknown) (unknown) Result panel 251 (unknown) (no date) (unknown) All (no value) (units unknown) (unknown) Result panel 252 (unknown) (no date) (unknown) All (no value) (units unknown) (unknown) Result panel 253 (unknown) (no date) (unknown) All (no value) (units unknown) (unknown) Result panel 254 (unknown) (no date) (unknown) All (no value) (units unknown) (unknown) Result panel 255 (unknown) (no date) (unknown) All (no value) (units unknown) (unknown) Result panel 256 (unknown) (no date) (unknown) All (no value) (units unknown) (unknown) Result panel 257 (unknown) (no date) (unknown) All (no value) (units unknown) (unknown) Result panel 258 (unknown) (no date) (unknown) All (no value) (units unknown) (unknown) Result panel 259 (unknown) (no date) (unknown) All (no value) (units unknown) (unknown) Result panel 260 (unknown) (no date) (unknown) All (no value) (units unknown) (unknown) Result panel 261 (unknown) (no date) (unknown) All (no value) (units unknown) (unknown) Result panel 262 (unknown) (no date) (unknown) All (no value) (units unknown) (unknown) Result panel 263 (unknown) (no date) (unknown) All (no value) (units unknown) (unknown) Result panel 264 (unknown) (no date) (unknown) All (no value) (units unknown) (unknown) Result panel 265 (unknown) (no date) (unknown) All (no value) (units unknown) (unknown) Result panel 266 (unknown) (no date) (unknown) All (no value) (units unknown) (unknown) Result panel 267 (unknown) (no date) (unknown) All (no value) (units unknown) (unknown) Result panel 268 (unknown) (no date) (unknown) All (no value) (units unknown) (unknown) Result panel 269 (unknown) (no date) (unknown) All (no value) (units unknown) (unknown) Result panel 270 (unknown) (no date) (unknown) All (no value) (units unknown) (unknown) Result panel 271 (unknown) (no date) (unknown) All (no value) (units unknown) (unknown) Result panel 272 (unknown) (no date) (unknown) All (no value) (units unknown) (unknown) Result panel 273 (unknown) (no date) (unknown) All (no value) (units unknown) (unknown) Result panel 274 (unknown) (no date) (unknown) All (no value) (units unknown) (unknown) Result panel 275 (unknown) (no date) (unknown) All (no value) (units unknown) (unknown) Result panel 276 (unknown) (no date) (unknown) All (no value) (units unknown) (unknown) Result panel 277 (unknown) (no date) (unknown) All (no value) (units unknown) (unknown) Result panel 278 (unknown) (no date) (unknown) All (no value) (units unknown) (unknown) Result panel 279 (unknown) (no date) (unknown) All (no value) (units unknown) (unknown) Result panel 280 (unknown) (no date) (unknown) All (no value) (units unknown) (unknown) Result panel 281 (unknown) (no date) (unknown) All (no value) (units unknown) (unknown) Result panel 282 (unknown) (no date) (unknown) All (no value) (units unknown) (unknown) Result panel 283 (unknown) (no date) (unknown) All (no value) (units unknown) (unknown) Result panel 284 (unknown) (no date) (unknown) All (no value) (units unknown) (unknown) Result panel 285 (unknown) (no date) (unknown) All (no value) (units unknown) (unknown) Result panel 286 (unknown) (no date) (unknown) All (no value) (units unknown) (unknown) Result panel 287 (unknown) (no date) (unknown) All (no value) (units unknown) (unknown) Result panel 288 (unknown) (no date) (unknown) All (no value) (units unknown) (unknown) Result panel 289 (unknown) (no date) (unknown) All (no value) (units unknown) (unknown) Result panel 290 (unknown) (no date) (unknown) All (no value) (units unknown) (unknown) Result panel 291 (unknown) (no date) (unknown) All (no value) (units unknown) (unknown) Result panel 292 (unknown) (no date) (unknown) All (no value) (units unknown) (unknown) Result panel 293 (unknown) (no date) (unknown) All (no value) (units unknown) (unknown) Result panel 294 (unknown) (no date) (unknown) All (no value) (units unknown) (unknown) Result panel 295 (unknown) (no date) (unknown) All (no value) (units unknown) (unknown) Result panel 296 (unknown) (no date) (unknown) All (no value) (units unknown) (unknown) Result panel 297 (unknown) (no date) (unknown) All (no value) (units unknown) (unknown) Result panel 298 (unknown) (no date) (unknown) All (no value) (units unknown) (unknown) Result panel 299 (unknown) (no date) (unknown) All (no value) (units unknown) (unknown) Result panel 300 (unknown) (no date) (unknown) All (no value) (units unknown) (unknown) Result panel 301 (unknown) (no date) (unknown) All (no value) (units unknown) (unknown) Result panel 302 (unknown) (no date) (unknown) All (no value) (units unknown) (unknown) Result panel 303 (unknown) (no date) (unknown) All (no value) (units unknown) (unknown) Result panel 304 (unknown) (no date) (unknown) All (no value) (units unknown) (unknown) Result panel 305 (unknown) (no date) (unknown) All (no value) (units unknown) (unknown) Result panel 306 (unknown) (no date) (unknown) All (no value) (units unknown) (unknown) Result panel 307 (unknown) (no date) (unknown) All (no value) (units unknown) (unknown) Result panel 308 (unknown) (no date) (unknown) All (no value) (units unknown) (unknown) Result panel 309 (unknown) (no date) (unknown) All (no value) (units unknown) (unknown) Result panel 310 (unknown) (no date) (unknown) All (no value) (units unknown) (unknown) Result panel 311 (unknown) (no date) (unknown) All (no value) (units unknown) (unknown) Result panel 312 (unknown) (no date) (unknown) All (no value) (units unknown) (unknown) Result panel 313 (unknown) (no date) (unknown) All (no value) (units unknown) (unknown) Result panel 314 (unknown) (no date) (unknown) All (no value) (units unknown) (unknown) Result panel 315 (unknown) (no date) (unknown) All (no value) (units unknown) (unknown) Result panel 316 (unknown) (no date) (unknown) All (no value) (units unknown) (unknown) Result panel 317 (unknown) (no date) (unknown) All (no value) (units unknown) (unknown) Result panel 318 (unknown) (no date) (unknown) All (no value) (units unknown) (unknown) Result panel 319 (unknown) (no date) (unknown) All (no value) (units unknown) (unknown) Result panel 320 (unknown) (no date) (unknown) All (no value) (units unknown) (unknown) Result panel 321 (unknown) (no date) (unknown) All (no value) (units unknown) (unknown) Result panel 322 (unknown) (no date) (unknown) All (no value) (units unknown) (unknown) Result panel 323 (unknown) (no date) (unknown) All (no value) (units unknown) (unknown) Result panel 324 (unknown) (no date) (unknown) All (no value) (units unknown) (unknown) Result panel 325 (unknown) (no date) (unknown) All (no value) (units unknown) (unknown) Result panel 326 (unknown) (no date) (unknown) All (no value) (units unknown) (unknown) Result panel 327 (unknown) (no date) (unknown) All (no value) (units unknown) (unknown) Result panel 328 (unknown) (no date) (unknown) All (no value) (units unknown) (unknown) Result panel 329 (unknown) (no date) (unknown) All (no value) (units unknown) (unknown) Result panel 330 (unknown) (no date) (unknown) All (no value) (units unknown) (unknown) Result panel 331 (unknown) (no date) (unknown) All (no value) (units unknown) (unknown) Result panel 332 (unknown) (no date) (unknown) All (no value) (units unknown) (unknown) Result panel 333 (unknown) (no date) (unknown) All (no value) (units unknown) (unknown) Result panel 334 (unknown) (no date) (unknown) All (no value) (units unknown) (unknown) Result panel 335 (unknown) (no date) (unknown) All (no value) (units unknown) (unknown) Result panel 336 (unknown) (no date) (unknown) All (no value) (units unknown) (unknown) Result panel 337 (unknown) (no date) (unknown) All (no value) (units unknown) (unknown) Result panel 338 (unknown) (no date) (unknown) All (no value) (units unknown) (unknown) Result panel 339 (unknown) (no date) (unknown) All (no value) (units unknown) (unknown) Result panel 340 (unknown) (no date) (unknown) All (no value) (units unknown) (unknown) Result panel 341 (unknown) (no date) (unknown) All (no value) (units unknown) (unknown) Result panel 342 (unknown) (no date) (unknown) All (no value) (units unknown) (unknown)
[2023-01-06 19:25] VITALS: BP 130/88
== END 2023-01-06 19:23 | disposition home or self-care (01) ==
LOC: EDBD → EDUNIT# → ED 18:08
DX: G40.909 Epilepsy, unspecified, not intractable, without status epilepticus (principal); F17.200 Nicotine dependence, unspecified, uncomplicated
CPT/HCPCS: 36415; 80053; 80306; 80320; 83690; 85025; 99283; 99284